=== PATIENT | female | born 1945 | race Caucasian/White ===

== ENCOUNTER 2017-05-11 16:40 | Emergency (ER) | payer MEDICARE | END 2017-05-11 18:19 | disposition home or self-care (01) | LOC: FER 16:40 | DX: S02.2XXA Fracture of nasal bones, initial encounter for closed fracture (principal); Z23 Encounter for immunization; W01.0XXA Fall on same level from slipping, tripping and stumbling without subsequent striking against object, initial encounter; Y93.75 Activity, martial arts | CPT/HCPCS: 70450; 70486; 90471; 90715 ==